=== PATIENT | female | born 1995 | race Caucasian/White ===

== ENCOUNTER 2017-04-26 20:17 | Emergency (ER) | payer SELFPAY ==
[2017-04-26 20:48] VITALS: RESP 16; O2SAT 97
[2017-04-26] MEDS ORDERED: Sodium Chloride 0.9% 1,000 ML IV ONE (21:25)
--- NOTE | 2017-04-26 21:25 | C.PDOC ---
History Of Present Illness 21 year old female who presents to the ER with a complaint of generalized body aches, fever, cough, and nasal congestion for the past 2 days. Patient also reports having pain to the LLQ and sore throat today; denies focal trauma, UTI, constipation, diarrhea, or vomiting. Time Seen by Provider: 04/26/17 21:03 Chief Complaint (Nursing): Fever History Per: Patient History/Exam Limitations: no limitations Onset/Duration Of Symptoms: Days Current Symptoms Are (Timing): Still Present Location Of Pain: Diffuse Myalgias Sick Contacts (Context): None Associated Symptoms: Fever, Cough, Myalgias, Nasal Congestion. denies: Vomiting , Diarrhea, Other (UTI, Constipation, ) Ear Symptoms: Bilateral: None Recent travel outside of the [place]: No Past Medical History Reviewed: Historical Data, Nursing Documentation, Vital Signs Vital Signs: Last Vital Signs Temp 98.6 F 04/26/17 23:23 Pulse 79 04/26/17 23:23 Resp 16 04/26/17 23:23 BP 101/62 04/26/17 23:23 Pulse Ox 97 04/27/17 04:41 - Medical History PMH: Hyperthyroidism Surgical History: No Surg Hx Family History: States: Unknown Family Hx - Social History Hx Alcohol Use: Yes Hx Substance Use: Yes - Immunization History Hx Influenza Vaccination: No Review Of Systems Constitutional: Negative for: Fever, Chills ENT: Positive for: Nose Congestion Respiratory: Positive for: Cough Gastrointestinal: Positive for: Abdominal Pain (LLQ). Negative for: Vomiting, Diarrhea, Constipation Musculoskeletal: Positive for: Other (Generalized body aches) Physical Exam - Physical Exam Appears: Other (Febrile) Skin: Normal Color, Warm, Dry Head: Atraumatic, Normacephalic Eye(s): bilateral: Normal Inspection, PERRL Ear(s): Bilateral: Normal Nose: Normal Throat: Erythema (Mild), No Exudate Neck: Normal, Supple Chest: Symmetrical, No Tenderness Cardiovascular: Rhythm Regular Respiratory: Normal Breath Sounds, No Rales, No Rhonchi, No Wheezing Gastrointestinal/Abdominal: Soft, No Tenderness, No Distention Back: No CVA Tenderness Neurological/Psych: Oriented x3, Normal Speech, Normal Cognition Gait: Steady ED Course And Treatment - Laboratory Results Result Diagrams: 04/26/17 21:32 04/26/17 21:32 O2 Sat by Pulse Oximetry: 97 (Room air) Pulse Ox Interpretation: Normal Progress Note: Blood work, urinalysis, mono spot, influenza test, rapid strep, and throat culture ordered. IV fluids and toradol administered. Patient is resting comfortably, tolerating PO, and is afebrile at this time. Clinical signs and symptoms are not suggestive of sepsis, meningitis, UTI, pneumonia, intra-abdominal pathology, or cellulitis. Patient will be discharge home, and instructed to follow up with PMD in 1-2 days without fail. Patient was instructed to return for any worsening symptoms, persistent fever, neck pain, rash, abdominal pain, or vomiting. Disposition - Disposition Referrals: [facility] [Outside] Disposition: HOME/ ROUTINE Disposition Time: 23:29 Condition: STABLE Additional Instructions: Increase fluids Take meds as directed Bed rest Return to ER if worse Prescriptions: Benzonatate [Tessalon Perles] 100 mg PO TID #20 sgl Cetirizine HCl [Zyrtec] 10 mg PO DAILY #20 capsule Ibuprofen [Motrin] 600 mg PO Q6H #20 tab Instructions: Viral Syndrome (ED) Forms: [employer] (Syriac), School Excuse - Clinical Impression Clinical Impression: Viral syndrome - Scribe Statement The provider has reviewed the documentation as recorded by the Scribjaya Garcia All medical record entries made by the Nuzhatibe were at my direction and personally dictated by me. I have reviewed the chart and agree that the record accurately reflects my personal performance of the history, physical exam, medical decision making, and the department course for this patient. I have also personally directed, reviewed, and agree with the discharge instructions and disposition.
[2017-04-26 21:43] LABS: BASO % 0.2 % (0.0-2.0); EOS % 0.1 % (0.0-4.0); HEMATOCRIT 36.6 % (34.0-47.0); LYMPH # 0.6 K/uL (1.0-4.3); LYMPH % 7.5 % (20.0-40.0); MEAN CELL VOLUME 82.1 fL (81.0-99.0); MEAN CORPUSCULAR HEMOGLOBIN 27.2 pg (27.0-31.0); MEAN CORPUSCULAR HGB CONC 33.1 g/dL (33.0-37.0); MEAN PLATELET VOLUME 8.3 fL (7.2-11.7); MONO # 0.8 K/uL (0.0-0.8); MONO % 10.5 % (0.0-10.0); PLATELET COUNT 226 K/uL (130-400); RED CELL DISTRIBUTION WIDTH 13.6 % (11.5-14.5); WHITE BLOOD COUNT 7.9 K/uL (4.8-10.8)
[2017-04-26 21:44] LABS: CHLORIDE 98 mmol/L (98-107)
[2017-04-26 21:45] LABS: POTASSIUM 4.2 mmol/L (3.6-5.2); SODIUM 135 mmol/L (132-148)
[2017-04-26 21:47] LABS: BILIRUBIN,TOTAL 0.6 mg/dL (0.2-1.3); CARBON DIOXIDE 22 mmol/L (22-30); GFR AFRICAN-AMERICAN > 60
[2017-04-26 21:48] LABS: ALB/GLOB RATIO 1.3 (1.0-2.1); ALKALINE PHOSPHATASE 47 U/L (38-126); ALT/SGPT 23 U/L (9-52); AST/SGOT 24 U/L (14-36); BLOOD UREA NITROGEN 7 mg/dL (7-17); CALCIUM 8.8 mg/dl (8.6-10.4); GLUCOSE,RANDOM 79 mg/dL (65-105); TOTAL PROTEIN 7.6 g/dL (6.3-8.3)
[2017-04-26 22:14] LABS: RBC URINE 5 /hpf (0-3); URINE BACTERIA RARE (<OCC); URINE BILIRUBIN NEGATIVE (NEGATIVE); URINE BLOOD NEGATIVE (NEGATIVE); URINE COLOR Yellow (YELLOW); URINE GLUCOSE (UA) NORMAL (Normal); URINE KETONE 2+ mg/dL (NEGATIVE); URINE LEUKOCYTE ESTERASE NEG Leu/uL (Negative); URINE PROTEIN NEGATIVE (NEGATIVE); URINE UROBILINOGEN NORMAL mg/dL (0.2-1.0); WBC URINE 2 /hpf (0-5)
[2017-04-26] MEDS ORDERED: Sodium Chloride 0.9% 1,000 ML ONE (22:23)
[2017-04-26 22:35] LABS: NEUTROPHIL 75 % (50-75); TOTAL CELLS COUNTED 100
[2017-04-26 22:36] LABS: SMUDGE CELLS PRESENT
[2017-04-26 22:49] LABS: LARGE PLATELETS PRESENT
[2017-04-26 23:24] VITALS: BP 101/62; PULSE 79; TEMP 98.6
== END 2017-04-26 23:44 | disposition home or self-care (01) ==
LOC: C.ER 20:17
DX: B34.9 Viral infection, unspecified (principal)
CPT/HCPCS: 80053; 81001; 84703; 85025; 86308; 87070; 87430; 87804; 96361; 96374; 99284; J1885; J7040